=== PATIENT | female | born 1980 | race Caucasian/White ===

== ENCOUNTER 2020-09-27 11:18 | Outpatient (CLI) | payer BC ==
[~2020-09-27] VITALS: Ht 162.6 cm; Wt 136.7 kg
[2020-09-27 11:50] VITALS: BP 128/60
[2020-09-27 13:21] LABS: BILIRUBIN,URINE NEGATIVE (NEGATIVE); CLARITY,URINE CLOUDY; COLOR,URINE YELLOW; GLUCOSE, URINE (UA) NEGATIVE (NEGATIVE); KETONES,URINE NEGATIVE (NEGATIVE); LEUKOCYTE ESTERASE ,URINE NEGATIVE (NEGATIVE); NITRITE,URINE NEGATIVE (NEGATIVE); PH,URINE 7.5 (5-9); PROTEIN,URINE 1+ (NEGATIVE)
[2020-09-27 13:27] LABS: AMORPHOUS SEDIMENT,UR LARGE AMOR PHOSPHATE /LPF; BACTERIA,URINE NEGATIVE /HPF
--- NOTE | 2020-09-27 15:38 | Diagnostic Imaging Report ---
INDICATION: Back pain and cramping. TECHNIQUE: Multiple real-time grayscale images were obtained over the gravid uterus. COMPARISON: None FINDINGS: There is a single live fetus in a cephalic presentation. Placenta is anterior. Amniotic fluid index is 21 cm. Heart rate was recorded at 153 bpm. Cervical length is approximately 2.5 cm. Biometrical measurements are as follows: Biparietal 6.85 cm, age 27 weeks 4 days. Head circumference 24.67 cm, age 26 weeks 6 days. Abdominal circumference 22.12 cm, age 26 weeks 6 days. Femur length 4.96 cm, age 26 weeks 6 days. Sonographic estimate age: 27 weeks 0 days. Sonographic estimated date of delivery: 12/27/2020. Estimated Weight: 971 gm (+/- +/- 142 gm). LMP percentile: 27%. heart rate: 153 beats per minute. number: 1 of 1. IMPRESSION: Single live IUP approximately 27 weeks 0 days gestational age. Estimated date of confinement sonographically is 12/27/2020. Dictated by: Dictated on workstation # [id number]
--- NOTE | 2020-09-30 08:04 | Physician Query-Final Dx ---
KAIT MCCURDY 09/30/20 0803: Clinic Account Progress/Dx Physician Query: Please give diagnosis Please include # weeks gestation Date of Service September 27, 2020 at 11:18 JENIFFER MADRIGAL MD 09/30/20 2040: Clinic Account Progress/Dx DIAGNOSIS: Diagnosis Back pain in 27 weeks gestation Obesity complicated - unable to accurately trace uterine activity Rule out labor- cervix borderline length, symptoms improved, discharged on modified bedrest until follow up with primary provider KAIT MCCURDY September 30, 2020 08:03 JENIFFER MADRIGAL MD September 30, 2020 20:40
== END 2020-09-27 16:30 | disposition home or self-care (01) ==
LOC: WSo 11:18 → LDRP 11:21 → WSo 16:30
PROVIDERS: ATTEND Family Medicine
DX: O26.892 Other specified pregnancy related conditions, second trimester (principal); Z3A.27 27 weeks gestation of pregnancy
CPT/HCPCS: 76805; 81000; G0463; 99213